=== PATIENT | female | born 1955 | race Caucasian/White ===

== ENCOUNTER 2021-02-15 21:32 | Emergency (ER) | payer MEDICARE, OTHER ==
[~2021-02-15] VITALS: Ht 154.9 cm; Wt 61.2 kg
--- NOTE | 2021-02-15 22:20 | NUR ---
PT BIBS C/O BACK PAIN THAT HAS BEEN GOING ON FOR ABOUT 3 WEEKS. PAIN IS NOW RADIATING TO RIGHT ABDOMEN 12/18. NO N/V/D. PT IS A/OX4. PT IS ON ROOM AIR NO S/S OF RESP DISTRESS. BREATHING EVEN AND UNLABORED. VSS. ALL SAFETY MEASURES IMPLEMENTED. WILL CONTINUE TO MONITOR AND ASSESS FOR ANY CHNAGES.
[2021-02-15] MEDS ORDERED: ACETAMINOPHEN 325 MG TABLET PO ONE (22:30)
--- NOTE | 2021-02-15 22:39 | NUR ---
lab at bedside
[2021-02-15] MEDS ORDERED: ACETAMINOPHEN ES 500 MG TABLET ONE (22:43)
[2021-02-15 22:49] LABS: BASOPHILS # (AUTO) 0.1 K/uL (0.0-0.2); EOSINOPHILS % (AUTO) 3.5 % (0.0-6.0); HEMATOCRIT 43 % (33-45); HEMOGLOBIN 14.1 g/dL (11.5-14.8); LYMPHOCYTES % (AUTO) 35.1 % (20.0-44.0); MEAN CORPUSCULAR HGB CONC 33 g/dl (31.0-36.0); MEAN CORPUSCULAR VOLUME 88 fL (82-100); MONOCYTES # (AUTO) 0.7 K/uL (0.1-1.30); MONOCYTES % (AUTO) 8.3 % (2.0-12.0); NEUTROPHILS # (AUTO) 4.4 K/uL (1.8-8.9); NEUTROPHILS % (AUTO) 52.1 % (43.0-81.0); PLATELET COUNT (AUTO) 254 K/uL (150-450); RED BLOOD CELL COUNT(AUTO) 4.91 MIL/uL (4.0-5.2); WHITE BLOOD COUNT (AUTO) 8.4 K/uL (4.3-11.0)
[2021-02-15 23:05] LABS: CALCIUM, SERUM 9.3 mg/dL (8.5-10.1); CARBON DIOXIDE 27 mmol/L (21-32); CHLORIDE 106 mmol/L (98-107); CREATININE 0.7 mg/dL (0.6-1.3); GLUCOSE 117 mg/dL (74-106); POTASSIUM 4.3 mmol/L (3.5-5.1); SODIUM SERUM 141 mmol/L (136-145); UREA NITROGEN, BLOOD 9 mg/dL (7-18)
[2021-02-15 23:12] LABS: ALANINE AMINOTRANSFERASE 14 U/L (12-78); ALBUMIN 3.4 g/dL (3.4-5.0); ALKALINE PHOSPHATASE 51 U/L (46-116); ASPARTATE AMINOTRANSFERASE 4 U/L (15-37); BILIRUBIN,DIRECT 0.1 mg/dL (0.0-0.2); BILIRUBIN,TOTAL 0.2 mg/dL (0.2-1.0); LIPASE 84 U/L (73-393); TOTAL PROTEIN, SERUM 6.8 g/dL (6.4-8.2)
[2021-02-15 23:59] LABS: BILIRUBIN,URINE Negative (NEGATIVE); COLOR,URINE LIGHT YELLOW (YELLOW); LEUKOCYTE ESTERASE ,URINE Negative (NEGATIVE); NITRITE, URINE Negative (NEGATIVE); PH,URINE 6.5 (5.0-8.0); PROTEIN,URINE Negative (NEGATIVE); UGLUCOSE Negative (NEGATIVE); UROBILINOGEN,URINE 0.2 EU/dL (0.2)
[2021-02-16] MEDS ORDERED: TAMS-12 PO (00:08)
[2021-02-16] MEDS ORDERED: IBUP-1957 PO (00:08)
[2021-02-16 00:13] LABS: BACTERIA,URINE Rare /HPF (None Seen); SQUAMOUS EPITHELIAL CELL,UR Few /HPF (None Seen); WBC,URINE NONE SEEN /HPF (0-3)
--- NOTE | 2021-02-16 00:50 | NUR ---
Patient discharged to home in stable condition. Written and verbal after care instructions given. Patient verbalizes understanding of instruction.
[2021-02-16 02:09] VITALS: BP 138/76
== END 2021-02-16 00:50 | disposition home or self-care (01) ==
LOC: ER 21:39
DX: N20.0 Calculus of kidney (principal); K76.89 Other specified diseases of liver; Z98.890 Other specified postprocedural states; Z79.899 Other long term (current) drug therapy
CPT/HCPCS: 36415; 76705-TC; 80048-TC; 80076-TC; 81001; 83690-TC; 84484-TC; 85025-TC; 85730-TC